=== PATIENT | female | born 1930 | race Two or more races ===

== ENCOUNTER 2017-07-11 13:28 | Inpatient (IN) | payer MEDICAID ==
[~2017-07-11] VITALS: Ht 157.5 cm; Wt 64.4 kg
--- NOTE | 2017-07-11 13:30 | NUR ---
PT TO ER BED 09. HERE [facility] S/P DIALYSIS TODAY. 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 DENIES CHEST PAIN DIALYSIS ACCESS NOTED TO R SUBCLAVIAN. GOWNED AND PLACED ON MONITOR. PT IS GHANAIAN SPEAKING. FAMILY AT BEDSIDE. AWAITINGMD EVAL.
--- NOTE | 2017-07-11 14:34 | NUR ---
DR ARMENTA AT BEDSIDE FOR EVAL.
--- NOTE | 2017-07-11 14:55 | NUR ---
ONSITE CASE MANAGER AT BEDSIDE FOR BLOOD DRAW.
[2017-07-11 14:59] LABS: BASOPHILS % (AUTO) 0.3 % (0.0-2.0); EOSINOPHILS % (AUTO) 0.2 % (0.0-6.0); HEMATOCRIT 32 % (33-45); LYMPHOCYTES # (AUTO) 0.3 /CMM (0.8-4.8); LYMPHOCYTES % (AUTO) 1.9 % (20.0-44.0); MEAN CORPUSCULAR HGB CONC 34 g/dl (31.0-36.0); MEAN CORPUSCULAR VOLUME 94 fL (82-100); MONOCYTES # (AUTO) 0.1 /CMM (0.1-1.30); MONOCYTES % (AUTO) 0.9 % (2.0-12.0); NEUTROPHILS # (AUTO) 14.2 /CMM (1.8-8.9); NEUTROPHILS % (AUTO) 96.7 % (43.0-81.0); PLATELET COUNT (AUTO) 201 /CMM (150-450); RDW COEFFICIENT OF VARIATION 14.8 (11.5-15.0); RED BLOOD CELL COUNT(AUTO) 3.43 MIL/uL (4.0-5.2); WHITE BLOOD COUNT (AUTO) 14.6 K/uL (4.3-11.0)
[2017-07-11] MEDS ORDERED: IV NS 0.9% 500 ML BAG IV ONE (15:00)
[2017-07-11 15:14] LABS: INR 1.01 (0.85-1.15)
[2017-07-11 15:15] LABS: CARBON DIOXIDE 25 mmol/L (21-32); CHLORIDE 97 mmol/L (98-107); CREATININE 1.7 mg/dL (0.6-1.3); GLUCOSE 140 mg/dL (74-106); POTASSIUM 3.2 mmol/L (3.5-5.1); SODIUM SERUM 135 mmol/L (136-145); UREA NITROGEN, BLOOD 18 mg/dL (7-18)
[2017-07-11 15:18] LABS: TROPONIN I 0.038 ng/mL (0.00-0.056)
[2017-07-11 15:21] LABS: ALANINE AMINOTRANSFERASE 68 U/L (12-78); ALBUMIN 3.3 g/dL (3.4-5.0); ALKALINE PHOSPHATASE 97 U/L (46-116); ASPARTATE AMINOTRANSFERASE 41 U/L (15-37); BILIRUBIN,DIRECT 0.4 mg/dL (0.0-0.2); BILIRUBIN,TOTAL 0.7 mg/dL (0.2-1.0); TOTAL PROTEIN, SERUM 7.7 g/dL (6.4-8.2)
--- NOTE | 2017-07-11 15:29 | NUR ---
PT TO RADIOLOGY FOR CT PULMONARY ANGIO VIA [facility].
[2017-07-11] MEDS ORDERED: CT SWABBABLE VALVE TRANS SET 1 EA INFUS.SET MC ONE (15:31)
[2017-07-11] MEDS ORDERED: IOHEXOL-300 100 ML VIAL IV ONE (15:31)
[2017-07-11] MEDS ORDERED: IV NS 0.9% 250 ML IV ONE (15:31)
[2017-07-11] MEDS ORDERED: VANCOMYCIN 1 GM in IV D5W 250 ML IV ONE ×2 (16:00→19:30)
[2017-07-11] MEDS ORDERED: IV NS 0.9% 1,000 ML BAG IV ONE (16:00)
[2017-07-11] MEDS ORDERED: CEFEPIME 1 GM in IV D5W 50 ML IV ONE (16:00)
--- NOTE | 2017-07-11 16:03 | NUR ---
CALLED NURSING SUP. FOR TELE BED
--- NOTE | 2017-07-11 16:12 | NUR ---
GARCIA PAGED, ARI MARR LOCKSTITCH LINING MAKER
--- NOTE | 2017-07-11 16:34 | NUR ---
[facility]
[2017-07-11] MEDS ORDERED: FURO-144 PO (16:46)
[2017-07-11] MEDS ORDERED: SENN-167 PO (16:46)
[2017-07-11] MEDS ORDERED: DOCU100C36 PO (16:46)
[2017-07-11] MEDS ORDERED: FERR325T23 PO (16:46)
[2017-07-11] MEDS ORDERED: SEVE800T7 PO (16:46)
[2017-07-11] MEDS ORDERED: OMEP20TA5 PO (16:46)
--- NOTE | 2017-07-11 17:09 | NUR ---
TELE 118-1
--- NOTE | 2017-07-11 17:39 | NUR ---
REPORT GIVEN TO AYDIN. PT AWAIITARSLAN TRANSFER TO FLOOR.
--- NOTE | 2017-07-11 18:00 | NUR ---
ASSORTER LAUNDRY INITIAL NOTES RECEIVED PATIENT FROM ER FROM [facility], ARRIVED VIA GURNEY, AOX3, PUERTO RICAN SPEAKING, FAMILY AT BEDSIDE, ROOM AIR, NO DISTRESS, STATES SHE IS FEELING BETTER, PATIENT CAME FROM HD AFTER SYMPTOMS OF CHILLS AND SHAKINESS, HIGH BP AND TACHYCARDIA, PATIENT ON TELE MONITOR ST 114, PATIENT IS ABLE TO AMBULATE WITH ASSISTANCE AND WALKER, AND WHEELCHAIR, LIVES AT HOME WITH FAMILY, RECENTLY MOVED FROM [facility]. IV R FA 2OG, BOBBI Barker SUBCLAVIAN FOR HD, PATIENT CLEANED AND SKIN CHECK DONE, NO REDNESS OR SKIN ISSUES NOTED, BELONGINGS LIST SIGNED, AWAITING ADMITTING ORDERS FROM DR. MARR, BED IN LOW AND LOCKED POSITION CALL LIGHT WITHIN REACH.
[2017-07-11] MEDS ORDERED: ACETAMINOPHEN 325 MG TABLET PO PRN (18:30)
[2017-07-11] MEDS ORDERED: Z GUARD REMEDY 2 OZ OINT TP PRN (18:30)
[2017-07-11] MEDS ORDERED: HYDROCODONE/APAP 5/325MG 1 EACH TABLET PO PRN (18:30)
[2017-07-11] MEDS ORDERED: SENNOSIDES 8.6 MG TABLET PO PRN (18:30)
[2017-07-11] MEDS ORDERED: FEE PK DOSING 1 MIN EA MC ONE (18:40)
[2017-07-11 18:51] VITALS: BP 134/63
[2017-07-11] MEDS ORDERED: ONDANSETRON 4 MG TAB.RAPDIS SL PRN (19:00)
[2017-07-11] MEDS: MEROPENEM 500 MG in IV NS 0.9% 50 ML IV SCH (20:12)
[2017-07-11 21:17] VITALS: BP 127/53
[2017-07-12] VITALS: BP 134/74
[2017-07-12 04:00] VITALS: BP 122/53
[2017-07-12] MEDS: MEROPENEM 500 MG in IV NS 0.9% 50 ML IV SCH ×2 (05:26→17:02)
[2017-07-12] MEDS ORDERED: VANCOMYCIN 500 MG in IV D5W 100 ML IV PRN (06:00)
[2017-07-12 07:13] LABS: BASOPHILS # (AUTO) 0.1 /CMM (0.0-0.2); BASOPHILS % (AUTO) 0.3 % (0.0-2.0); EOSINOPHILS % (AUTO) 0.5 % (0.0-6.0); HEMATOCRIT 26 % (33-45); HEMOGLOBIN 8.8 g/dL (11.5-14.8); LYMPHOCYTES # (AUTO) 1.5 /CMM (0.8-4.8); LYMPHOCYTES % (AUTO) 8.4 % (20.0-44.0); MEAN CORPUSCULAR HGB CONC 34 g/dl (31.0-36.0); MEAN CORPUSCULAR VOLUME 95 fL (82-100); MONOCYTES # (AUTO) 1.3 /CMM (0.1-1.30); MONOCYTES % (AUTO) 7.1 % (2.0-12.0); NEUTROPHILS # (AUTO) 14.7 /CMM (1.8-8.9); NEUTROPHILS % (AUTO) 83.7 % (43.0-81.0); PLATELET COUNT (AUTO) 176 /CMM (150-450); RDW COEFFICIENT OF VARIATION 15.9 (11.5-15.0); RED BLOOD CELL COUNT(AUTO) 2.76 MIL/uL (4.0-5.2); WHITE BLOOD COUNT (AUTO) 17.6 K/uL (4.3-11.0)
[2017-07-12 07:22] LABS: ALANINE AMINOTRANSFERASE 49 U/L (12-78); ALBUMIN 2.5 g/dL (3.4-5.0); ALKALINE PHOSPHATASE 59 U/L (46-116); ASPARTATE AMINOTRANSFERASE 30 U/L (15-37); BILIRUBIN,TOTAL 0.5 mg/dL (0.2-1.0); CARBON DIOXIDE 25 mmol/L (21-32); CHLORIDE 102 mmol/L (98-107); CREATININE 2.3 mg/dL (0.6-1.3); GLUCOSE 104 mg/dL (74-106); PHOSPHORUS 2.7 mg/dL (2.5-4.9); POTASSIUM 3.2 mmol/L (3.5-5.1); SODIUM SERUM 137 mmol/L (136-145); TOTAL PROTEIN, SERUM 5.9 g/dL (6.4-8.2); UREA NITROGEN, BLOOD 22 mg/dL (7-18)
[2017-07-12 07:25] LABS: CHOLESTEROL 119 mg/dL (<200); HDL CHOLESTEROL 46 mg/dL (40-60); LDL 55 mg/dL (0-99); THYROID STIMULATING HORMONE 1.135 uIU/mL (0.358-3.74); TRIGLYCERIDES 145 mg/dL (30-150)
[2017-07-12 07:27] LABS: MAGNESIUM 1.7 mg/dL (1.8-2.4)
[2017-07-12 08:00] VITALS: BP_SYST 120; BP_SYST 121; BP_DIAS 53
--- NOTE | 2017-07-12 08:00 | NUR ---
MS RN RECEIVED ON BED, AWAKE,ALERT,ORIENTED X3,NOT IN ANY FORM OF DISTRESS, RESPIRATIONS EVEN AND UNLABORED, NO SOB NOTED
[2017-07-12] MEDS: SEVELAMER CARBONATE 800 MG TABLET PO SCH ×3 (08:30→17:01)
[2017-07-12] MEDS: PANTOPRAZOLE 40 MG TABLET.DR PO SCH (08:30)
[2017-07-12] MEDS: FERROUS SULFATE (325 MG) 325 MG/TAB TABLET PO SCH ×2 (08:30→17:01)
[2017-07-12] MEDS: DOCUSATE SODIUM 100 MG CAPSULE PO SCH ×2 (08:31→17:00)
[2017-07-12] MEDS: FUROSEMIDE 40 MG TABLET PO SCH (08:31)
[2017-07-12 12:00] VITALS: BP 122/60
--- NOTE | 2017-07-12 14:00 | NUR ---
MS RN WAS SEEN BY DR.LEE Alaniz/ KERMIT TO SEND BLOOD CULTURE.
[2017-07-12] MEDS ORDERED: VANCOMYCIN 1 GM in IV D5W 250 ML IV ONE (15:00)
[2017-07-12 16:00] VITALS: BP_SYST 126; BP_SYST 143; BP_DIAS 75
[2017-07-12] MEDS: LACTOBACILLUS RHAMNOSUS GG 1 EACH CAP.SPRINK PO SCH (17:01)
--- NOTE | 2017-07-12 17:51 | NUR ---
MS DE JESUS DISCHARGED TO [facility],NO DISTRESS NOTED, REPORT WAS GIVEN BY C[facility]TON TO CERTIFIED DIETARY MANAGER. Addendum: 07/12/17 at 1752 by BENSON MEREDITH RN WRONG PATIENT ,DISREGARD NOTE.
--- NOTE | 2017-07-12 19:40 | NUR ---
MS RN NOTES, RECEIVED PATIENT IN BED A/O X4, OCCITAN SPEAKING, ABLE TO VERBALIZED NEED AND CONCERNS, FAMILY AT BEDSIDE, NO C/O PAIN OR DISCOMFORT AT THIS TIME, AT RA SATURATION LEVEL >96%, BREATHING EVEN AND UNLABORED, RFA #20 SL INTACT AND PATENT, RIGHT SUBCLAVIAN BOBBI CATH, INTACT, DRESSING DRY AND CLEAN, NO BLEEDING NOTED, ALL NEEDS PROVIDED AND ANTICIPATED, BED LOCKED AND IN LOWEST POSITION, CALL LIGHT W/I REACH, WILL CONTINUE TO MONITOR CLOSELY
[2017-07-12 20:00] VITALS: BP 150/67
[2017-07-12 20:35] LABS: APPEARANCE,URINE SL CLOUDY (CLEAR); BILIRUBIN,URINE NEGATIVE (NEGATIVE); BLOOD, URINE 1+ Ery/uL (NEGATIVE); COLOR,URINE YELLOW (YELLOW); KETONES,URINE NEGATIVE (NEGATIVE); LEUKOCYTE ESTERASE ,URINE 3+ (NEGATIVE); NITRITE, URINE NEGATIVE (NEGATIVE); PH,URINE 6.5 (5.0-8.0); PROTEIN,URINE 1+ mg/dl (NEGATIVE); UGLUCOSE NEGATIVE (NEGATIVE); UROBILINOGEN,URINE 0.2 EU/dL (0.2)
[2017-07-12 20:56] LABS: BACTERIA,URINE 1+ /HPF (None Seen); SQUAMOUS EPITHELIAL CELL,UR Few /HPF (None Seen); WBC,URINE 81-100 /HPF (0-3)
[2017-07-13 04:00] VITALS: BP_SYST 150; BP_SYST 152; BP_DIAS 67
[2017-07-13] MEDS: MEROPENEM 500 MG in IV NS 0.9% 50 ML IV SCH ×2 (05:39→17:38)
[2017-07-13] MEDS ORDERED: VANCOMYCIN 500 MG in IV D5W 100 ML IV PRN (06:00)
[2017-07-13 06:39] LABS: BASOPHILS % (AUTO) 0.3 % (0.0-2.0); HEMATOCRIT 26 % (33-45); HEMOGLOBIN 8.6 g/dL (11.5-14.8); LYMPHOCYTES # (AUTO) 1.6 /CMM (0.8-4.8); LYMPHOCYTES % (AUTO) 13.1 % (20.0-44.0); MEAN CORPUSCULAR HGB CONC 34 g/dl (31.0-36.0); MEAN CORPUSCULAR VOLUME 96 fL (82-100); MONOCYTES # (AUTO) 0.9 /CMM (0.1-1.30); MONOCYTES % (AUTO) 6.8 % (2.0-12.0); NEUTROPHILS # (AUTO) 9.8 /CMM (1.8-8.9); NEUTROPHILS % (AUTO) 77.8 % (43.0-81.0); PLATELET COUNT (AUTO) 180 /CMM (150-450); RDW COEFFICIENT OF VARIATION 15.9 (11.5-15.0); RED BLOOD CELL COUNT(AUTO) 2.67 MIL/uL (4.0-5.2); WHITE BLOOD COUNT (AUTO) 12.5 K/uL (4.3-11.0)
[2017-07-13 06:46] LABS: CALCIUM, SERUM 8.1 mg/dL (8.5-10.1); CARBON DIOXIDE 26 mmol/L (21-32); CHLORIDE 100 mmol/L (98-107); CREATININE 3.2 mg/dL (0.6-1.3); GLUCOSE 105 mg/dL (74-106); MAGNESIUM 1.8 mg/dL (1.8-2.4); POTASSIUM 3.2 mmol/L (3.5-5.1); SODIUM SERUM 135 mmol/L (136-145); UREA NITROGEN, BLOOD 36 mg/dL (7-18)
[2017-07-13 06:55] LABS: IRON, SERUM 51 ug/dl (50-175); TOTAL IRON BINDING CAPACITY 242 ug/dl (250-450)
--- NOTE | 2017-07-13 07:01 | NUR ---
MS RN CLOSING NOTES, PATIENT IN BED AWAKE, ABLE TO VERBALIZED NEED AND CONCERNS, FAMILY AT BEDSIDE, NO C/O PAIN OR DISCOMFORT AT THIS TIME, AT RA SATURATION LEVEL >96%, BREATHING EVEN AND UNLABORED, RFA #20 SL INTACT AND PATENT, RIGHT SUBCLAVIAN BOBBI CATH, INTACT, DRESSING DRY AND CLEAN, NO BLEEDING NOTED, ALL NEEDS PROVIDED AND ANTICIPATED, BED LOCKED AND IN LOWEST POSITION, CALL LIGHT W/I REACH, WILL NO TIN DURING THIS SHIFT, WILL ENDORSE COMTINUITY OF CARE TO ONCOMING NURSE.
--- NOTE | 2017-07-13 07:48 | NUR ---
SILVICULTURE TEACHER NOTES, PATIENT AWAKE, ABLE TO VERBALIZED NEED AND CONCERNS, FAMILY AT BEDSIDE, NO C/O PAIN OR DISCOMFORT AT THIS TIME, AT RA NO SOB NOTED SAT 98%, BREATHING EVEN AND UNLABORED, RFA #20 SL INTACT AND PATENT, RIGHT SUBCLAVIAN BOBBI CATH, INTACT, DRESSING DRY AND CLEAN, NO BLEEDING NOTED, ALL NEEDS PROVIDED AND ANTICIPATED, BED LOCKED AND IN LOWEST POSITION, CALL LIGHT W/I REACH, SHIFT, WILL CONTINUITY CARE
[2017-07-13 08:00] VITALS: BP 151/69
[2017-07-13] MEDS: PANTOPRAZOLE 40 MG TABLET.DR PO SCH (08:12)
[2017-07-13] MEDS: DOCUSATE SODIUM 100 MG CAPSULE PO SCH ×2 (08:12→08:25)
[2017-07-13] MEDS: FERROUS SULFATE (325 MG) 325 MG/TAB TABLET PO SCH ×2 (08:23→17:00)
[2017-07-13] MEDS: SEVELAMER CARBONATE 800 MG TABLET PO SCH ×3 (08:23→17:38)
[2017-07-13] MEDS: LACTOBACILLUS RHAMNOSUS GG 1 EACH CAP.SPRINK PO SCH ×2 (08:23→17:00)
[2017-07-13] MEDS: FUROSEMIDE 40 MG TABLET PO SCH (09:00)
--- NOTE | 2017-07-13 10:30 | NUR ---
MANAGER WORKERS COMPENSATION NOTE FAMILY FOR PATIENT REFUSE TO HAVE LASIX IN AM ,STATED WILL TAKE AFTER HD ,WILL F\U
[2017-07-13 16:00] VITALS: BP_SYST 139; BP_SYST 151; BP_DIAS 69; BP_DIAS 82
--- NOTE | 2017-07-13 16:14 | NUR ---
MS RN NOTE HD STARTED ORDERED WILL F\U
--- NOTE | 2017-07-13 17:07 | NUR ---
MS RN NOTE HOLD MEDS AT THIS TIME ON HD , VANCO LEVEL 24, HOLD DOSE PHARMACIST ARI ORTEGA
--- NOTE | 2017-07-13 19:20 | NUR ---
RN OPENING NOTE PATIENT RECEIVED IN BED, ALERT AND ORIENTED X 3, DAUGHTER AT BEDSIDE, NOTED PT WITH NO SOB, BREATHING EVEN AND UNLABORED, NO C/O PAIN AND IN NO ACUTE DISTRESS. ALL PATIENT'S NEEDS ATTENDED TO AT THIS TIME. PLACED BED IN LOW POSITION AND LOCKED IN PLACE. CALL LIGHT WITHIN EASY REACH. WILL CONTINUE TO MONITOR PT.
[2017-07-13 20:00] VITALS: BP 147/64
[2017-07-14] MEDS ORDERED: AMLO5TAB7 PO (01:00)
[2017-07-14 05:00] VITALS: BP 121/79
[2017-07-14] MEDS: MEROPENEM 500 MG in IV NS 0.9% 50 ML IV SCH (05:04)
--- NOTE | 2017-07-14 06:25 | NUR ---
MS RN CLOSING NOTES PATIENT IN BED, ASLEEP BUT EASILY AROUSABLE, ALERT AND ORIENTED X 3, NO SOB, BREATHING EVEN AND UNLABORED IN ROOM AIR, REMAINS TO BE IN NO ACUTE DISTRESS, WITH NO C/O PAIN. PATIENT'S DAUGHTER AT BEDSIDE. ALL PATIENT'S NEEDS ATTENDED TO THROUGHOUT THE SHIFT. PLACED BED IN LOW POSITION, LOCKED IN PLACE. PATIENT IS AWARE OF SAFETY NEEDS. CALL LIGHT WITHIN EASY REACH. WILL ENDORSE TO AM SHIFT NURSE FOR CONTINUITY OF CARE.
--- NOTE | 2017-07-14 07:10 | NUR ---
RN NOTES: PATIENT RESTING IN BED. AOX3, POLISH SPEAKING. DAUGHTER AT BED SIDE. NONLABORED BREATHING NOTED. DENYING PAIN. IV SITE PATENT AND INTACT. HD CATH PATENT AND INTACT WELL. BED IN LOWEST LOCKED POSITION. CALL LIGHT WITHIN REACH. WILL CONTINUE TO MONITOR
[2017-07-14 07:41] LABS: BASOPHILS % (AUTO) 0.5 % (0.0-2.0); EOSINOPHILS % (AUTO) 3.2 % (0.0-6.0); HEMATOCRIT 28 % (33-45); HEMOGLOBIN 9.5 g/dL (11.5-14.8); LYMPHOCYTES # (AUTO) 1.5 /CMM (0.8-4.8); LYMPHOCYTES % (AUTO) 19.3 % (20.0-44.0); MEAN CORPUSCULAR HGB CONC 34 g/dl (31.0-36.0); MEAN CORPUSCULAR VOLUME 95 fL (82-100); MONOCYTES # (AUTO) 0.7 /CMM (0.1-1.30); MONOCYTES % (AUTO) 8.7 % (2.0-12.0); NEUTROPHILS # (AUTO) 5.3 /CMM (1.8-8.9); NEUTROPHILS % (AUTO) 68.3 % (43.0-81.0); PLATELET COUNT (AUTO) 201 /CMM (150-450); RDW COEFFICIENT OF VARIATION 15.3 (11.5-15.0); RED BLOOD CELL COUNT(AUTO) 2.92 MIL/uL (4.0-5.2); WHITE BLOOD COUNT (AUTO) 7.7 K/uL (4.3-11.0)
[2017-07-14 07:58] LABS: CALCIUM, SERUM 8.3 mg/dL (8.5-10.1); CARBON DIOXIDE 26 mmol/L (21-32); CHLORIDE 106 mmol/L (98-107); CREATININE 2.5 mg/dL (0.6-1.3); GLUCOSE 107 mg/dL (74-106); PHOSPHORUS 2.9 mg/dL (2.5-4.9); POTASSIUM 3.7 mmol/L (3.5-5.1); SODIUM SERUM 141 mmol/L (136-145); UREA NITROGEN, BLOOD 23 mg/dL (7-18)
[2017-07-14 08:00] VITALS: BP 158/82
[2017-07-14] MEDS: PANTOPRAZOLE 40 MG TABLET.DR PO SCH (08:35)
[2017-07-14 08:56] VITALS: BP 158/67
[2017-07-14] MEDS: SEVELAMER CARBONATE 800 MG TABLET PO SCH (08:59)
[2017-07-14] MEDS: FERROUS SULFATE (325 MG) 325 MG/TAB TABLET PO SCH (08:59)
[2017-07-14] MEDS: LACTOBACILLUS RHAMNOSUS GG 1 EACH CAP.SPRINK PO SCH (08:59)
[2017-07-14] MEDS: FUROSEMIDE 40 MG TABLET PO SCH (09:00)
[2017-07-14] MEDS: DOCUSATE SODIUM 100 MG CAPSULE PO SCH (09:00)
--- NOTE | 2017-07-14 09:02 | NUR ---
RN NOTES: PATIENT REFUSED DOCUSATE. STATING THAT SHE IS HAVING BOWEL MOVEMENTS
[2017-07-14] MEDS ORDERED: VANC1PLA9 IV (10:10)
--- NOTE | 2017-07-14 13:49 | NUR ---
RN NOTES: PATIENT DISCHARED HOME PER MD ORDERS. PATIENT STABLE. EXISTCARE INSTRUCTIONS AND MEDICATIONS DISCUSSED WITH PATIENT AND DAUGHTER. BOTH VERBALIZED UNDERSTANDING, ALL BELONGINGS GIVEN TO PATIENT. IV LINE REMOVED. PATIENT LEFT WITH DAUGHTERS VIA PRIVATE CAR, STABLE.
== END 2017-07-14 13:00 | disposition home health service (06) | DRG 466 ==
LOC: ER 13:29 → TELE1 17:24 → MEDSG1 07-12 11:23
PROVIDERS: ADMIT Nurse Practitioner Acute Care; ATTEND Nurse Practitioner Acute Care
PROC: 5A1D70Z Performance of Urinary Filtration, Intermittent, Less than 6 Hours Per Day (ICD-10-PCS; principal; 2017-07-13)
DX: T82.7XXA Infection and inflammatory reaction due to other cardiac and vascular devices, implants and grafts, initial encounter (principal); N18.6 End stage renal disease; A41.9 Sepsis, unspecified organism; E87.2 Acidosis; I12.0 Hypertensive chronic kidney disease with stage 5 chronic kidney disease or end stage renal disease; E11.22 Type 2 diabetes mellitus with diabetic chronic kidney disease; D63.8 Anemia in other chronic diseases classified elsewhere; E87.1 Hypo-osmolality and hyponatremia; E87.6 Hypokalemia; Z99.2 Dependence on renal dialysis; D72.829 Elevated white blood cell count, unspecified; E83.9 Disorder of mineral metabolism, unspecified; N39.0 Urinary tract infection, site not specified; B96.1 Klebsiella pneumoniae [K. pneumoniae] as the cause of diseases classified elsewhere
CPT/HCPCS: 36415; 80048-TC; 80053-TC; 80061-TC; 80076-TC; 80202-TC; 81000-TC; 83540-TC; 83605-TC; 83735-TC; 84100-TC; 84443-TC; 84484-TC; 85025-TC; 85730-TC; 87040-TC; 87081-TC; 87086-TC; 87186-TC; 90935-TC; 93307-TC; A4216; A4606; J0692; J2185; J3370; J7030; J7040; J7050; J7060; Q9967; Z7610